=== PATIENT | male | born 2005 | race Caucasian/White ===

== ENCOUNTER 2024-07-11 16:16 | Emergency (ER) | payer BC, SELFPAY ==
[2024-07-11 16:19] VITALS: BP 123/73
[2024-07-11 16:41] LABS: % Basophils 0.7 % (0-2); % Eosinophils 17.6 % (0-6); % Immature Granulocytes 0.3 % (0-0.5); % Lymphocytes 14.1 % (20.5-51.1); % Monocytes 8.1 % (1.7-9.3); % Neutrophils 59.2 % (42.2-75.2); Absolute Basophils 0.1 10^3/uL (0-0.2); Absolute Eosinophils 1.6 10^3/uL (0-0.7); Absolute Lymphocytes 1.3 10^3/uL (1.2-3.4); Absolute Monocytes 0.7 10^3/uL (0.1-0.6); Absolute Neutrophils 5.3 10^3/uL (1.4-6.5); Hematocrit 41.3 % (39.0-52.0); Hemoglobin 14.2 g/dL (13.0-18.0); Mean Corp Hgb Conc. 34.4 g/dL (33.0-37.0); Mean Corpuscular Hgb 30.4 pg (27.0-31.0); Mean Corpuscular Volume 88.4 fL (80.0-94.0); Mean Platelet Volume 9.8 fL (7.4-10.4); Nucleated Red Blood Cells % 0 % (-); Platelet Count 316 10^3/uL (130-400); Red Blood Cell Count 4.67 10^6/uL (4.70-6.10); Red Cell Dist. Width 11.6 % (11.5-14.5)
--- NOTE | 2024-07-11 16:43 | ED.GENMED ---
History of Present Illness
General
Chief Complaint: Chest Pain
Source: patient and family
Time Seen by Provider: 07/11/24 16:25
History of Present Illness
History of Present Illness:
19 year old male with no significant PMH presenting to the ER for evaluation of 3-4 days of intermittent sternal chest discomfort that waxes and wanes, lasts for a few hours and then will improve but not go fully away. No other associated symptoms.
Patient did take 400mg motrin, tums and prilosec yesterday and may have had some relief. Also notes pain is better when sitting forward, somewhat worse at night time lying down. Patient had a URI that started on , symptoms since have
resolved. No history of similar. Social history is unremarkable
Past History
Past History
ED Past Medical History: None
ED Past Surgical History: None
Social History
Tobacco: Non-smoker
Alcohol: None
Drug: None
Personal: Single
Living: with family
Employment: Employed
Review of Systems
Review of Systems
All Other Systems: ROS reviewed and negative except as documented in HPI and ROS
Phy Exam
Physical Exam
Physical Exam:
GENERAL: Alert , in no apparent distress
EYE: clear conjunctiva b/l
HEAD: NCAT
ENT: o/p clr, mmm.
CARDIAC: Regular rate and rhythm, no murmur .
LUNGS: Clear breath sounds bilaterally, no acute respiratory distress, no wheezes/rales/rhonchi, chest wall without ttp
ABDOMEN: Soft, without focal tenderness, no r/g, no cvat
NEUROLOGICAL: Alert and oriented
SKIN: Warm and dry, skin intact.
MUSCULOSKELETAL: No edema, well perfused.
PSYCH: Normal and appropriate interaction.
Scores
Heart Failure Risk
Heart Failure Risk Score: Not Applicable
Heart Score for Chest Pain Patients
STEMI patient?: No
History: Slightly or Non-Suspicious
ECG: Normal
Age: </= 45 years
Risk Factors: No Risk Factors
Troponin: </= Normal Limit
Heart Score for Chest Pain Patients: 0
Heart Score Risk: 2.5% MACE over next 6 weeks
Withdrawal Assessment of Alcohol
Withdrawal Assessment Completed?: Not applicable
Course
Orders/Labs/Results
Orders:
Orders
07/11/24 16:17
EKG [Electrocardiogram (*1)] Urgent
Reason for Study: Chest Pain
EKG- Treatment ONCE
07/11/24 16:19
CR Chest - 2 Views Urgent
Comment:
Reason For Exam: chest/back pain
07/11/24 16:35
Complete Blood Count/With Diff Urgent
Comprehensive Metabolic Panel Urgent
Troponin I Urgent
07/11/24 17:25
Urinalysis Reflex To Culture Urgent
Date Specimen was Collected: 07/11/24
Time Specimen was Collected: 17:11
Abnormal Lab Results
07/11/24 07/11/24
16:35 17:25
RBC 4.67 L 10^6/uL
(4.70-6.10)
Absolute Monos (auto) 0.7 H 10^3/uL
(0.1-0.6)
Absolute Eos (auto) 1.6 H 10^3/uL
(0-0.7)
Lymphocytes % 14.1 L %
(20.5-51.1)
Eosinophils % 17.6 H %
(0-6)
Glucose 103 H mg/dl
(70-99)
Alkaline Phosphatase 141 H U/L
(38-126)
Urine Urobilinogen 2+ A
(Neg - 1+)
07/11/24 16:35
07/11/24 16:35
Vital Signs
Initial and Last Documented VS:
Initial Vital Signs
Temp Pulse Resp BP Pulse Ox
98.0 F 85 17 123/73 99
07/11/24 16:19 07/11/24 16:19 07/11/24 16:19 07/11/24 16:19 07/11/24 16:19
Last Documented Vital Signs
Temp Pulse Resp BP Pulse Ox
98.0 F 74 17 123/73 97
07/11/24 16:19 07/11/24 17:18 07/11/24 17:18 07/11/24 16:19 07/11/24 17:18
MDM/Problems Addressed
Differential Diagnosis Includes:
pericarditis, myocarditis, costochondritis, pleurisy, pneumonia, no concern for ACS
MDM/Problems Addressed:
19-year-old male presenting to the emergency department for evaluation of sternal chest discomfort that began 3 to 4 days ago, waxes and wanes, improved when sitting forward, worse when laying reclined and at nighttime. No other symptoms. Does
admit to recent viral illness. Will check labs including troponin, EKG done in triage is unremarkable. Chest x-ray ordered as well.
*Radiology
Radiology exam reviewed: preliminary read by ED provider (normal CXR)
*Pulse Oximetry
Patient hypoxic: no
*EKG
Interpreted by ED Provider?: Yes
Heart Rate: 78
Rate: normal
Rhythm: sinus
[place]: normal axis
Ischemia: no ischemia
*[employer] Electric [employer] Technician Interpretation
Rate: normal
Rhythm: sinus
*Critical Care Note
Total Time (30-74mins, 75-104mins- exclusive of procedures): Not Applicable
Patient Management
Escalation/DeEscalation of care consider admission/obs:
Workup unremarkable. Advised for 5 to 7-day trial of anti-inflammatories. Aware of return precautions to the ER.
ED Attending Note
-
Portions of this chart may have been created with voice recognition software.� Occasional wrong word or��sound alike� substitutions may have occurred due to the inherent limitations of voice recognition software.
Discharge Plan
Departure
Patient Disposition: Home (Routine Discharge)
Date of Disposition: 07/11/24
Time of Disposition: 17:22
Patient with high blood pressure during this ER visit?: No
Discharge Problem:
Chest pain
Instructions: Chest Pain That Is Not Caused by the Heart (DC)
Prescriptions:
No Action
No Current Medications
0
Referrals:
NONE,* [Family Provider] -
Stand Alone Forms: Return to Work
Interventions
Interventions:
*Risk Screen - Suicide Last Done: 07/11/24 16:41
*General Assessment Last Done: 07/11/24 16:40
*Neglect/Abuse Screening Last Done: 07/11/24 16:41
ED- Fall Risk Assessment Last Done: 07/11/24 16:39
*ED COVID-19 Vaccine History Last Done: 07/11/24 16:40
*Nursing Disposition Last Done: 07/11/24 17:37
ED- Cardiac Assessment Last Done: 07/11/24 16:39
Discharge Date and Time
Discharge Date/Time: 07/11/24 17:37
Print Language: ROMANIAN
[2024-07-11 16:57] LABS: ALT (SGPT) 18 U/L (0-50); AST (SGOT) 29 U/L (17-59); Albumin 4.1 g/dl (3.5-5.0); Alkaline Phosphatase 141 U/L (38-126); Blood Urea Nitrogen 10 mg/dl (9-20); Calcium 9.6 mg/dl (8.4-10.2); Carbon Dioxide 30 mmol/L (22-30); Chloride 102 mmol/L (98-107); Glucose 103 mg/dl (70-99); Potassium 4.8 mmol/L (3.5-5.1); Sodium 141 mmol/L (135-145); Total Bilirubin 0.5 mg/dl (0.2-1.3); Total Protein 6.8 g/dl (6.3-8.2); eGFR > 60.00
[2024-07-11 17:08] LABS: Troponin I < 0.012 ng/ml
[2024-07-11 17:35] LABS: Urine Albumin Trace (Neg - Trace); Urine Bilirubin Negative (Negative); Urine Character Clear (Clear); Urine Color Yellow; Urine Glucose Negative (Negative); Urine Ketone Negative (Negative); Urine Leukocyte Negative (Negative); Urine Nitrite Negative (Negative); Urine Occult Blood Negative (Negative); Urine Specific Gravity 1.015 (<1.030); Urine Urobilinogen 2+ (Neg - 1+); Urine pH 6.5 (5.0-9.0)
== END 2024-07-11 17:37 | disposition home or self-care (01) ==
LOC: EMR 16:16
PROVIDERS: Physician Assistant Medical; EMERGENCY PHYSICIAN Emergency Medicine
DX: R07.89 Other chest pain (principal); M54.9 Dorsalgia, unspecified
CPT/HCPCS: 99283; 71046; 80053; 81003; 84484; 85025; 93005

== ENCOUNTER → 2025-03-13 13:03 | Outpatient (REF) | payer BC, SELFPAY | LOC: RAD 13:03 | PROVIDERS: ATTENDING PHYSICIAN Physician Assistant | DX: S93.491A Sprain of other ligament of right ankle, initial encounter (principal) | CPT/HCPCS: 73610 ==

== ENCOUNTER → 2025-09-06 13:44 | Outpatient (REF) | payer BC, SELFPAY ==
[2025-09-06 14:03] LABS: Hematocrit 45.8 % (39.0-52.0); Hemoglobin 14.7 g/dL (13.0-18.0); Mean Corp Hgb Conc. 32.1 g/dL (33.0-37.0); Mean Corpuscular Volume 96.4 fL (80.0-94.0); Nucleated Red Blood Cells % 0 % (-); Platelet Count 326 10^3/uL (130-400); Red Cell Dist. Width 11.9 % (11.5-14.5)
[2025-09-06 14:17] LABS: ALT (SGPT) 16 U/L (0-50); AST (SGOT) 21 U/L (17-59); Albumin 4.6 g/dl (3.5-5.0); Alkaline Phosphatase 97 U/L (38-126); HDL Cholesterol 39 mg/dl; LDL Cholesterol, Calculated 102 mg/dl; Total Protein 7.4 g/dl (6.3-8.2); Very Low Density Lipoprotein 21 mg/dl (0-30)
== END ==
LOC: REG 13:44
PROVIDERS: ATTENDING PHYSICIAN Physician Assistant Medical
DX: L70.0 Acne vulgaris (principal)
CPT/HCPCS: 36415; 80061; 80076; 85025